=== PATIENT | female | born 1930 | race Caucasian/White ===

== ENCOUNTER → 2020-08-02 | Outpatient (CLI) | payer MEDICARE, BC ==
--- NOTE | 2020-08-02 17:02 | RADIOLOGY REPORT (SQ) ---
EXAM DESCRIPTION: PHYSIO ARTERIAL LTD IMAGES COMPLETED DATE/TIME: 08/02/2020 4:01 pm REASON FOR STUDY: RLE EDMA/PAIN R60.0 LOCALIZED EDEMA COMPARISON: None. TECHNIQUE: Brachial blood pressure obtained. Pressures attempted of the peripheral vessels at the le luly of the ankle. LIMITATIONS: The ankle vessels are noncompressible and could not obtain adequate pressure readings f or the study. FINDINGS: Nondiagnostic study. IMPRESSION: NONDIAGNOSTIC STUDY. THE ANKLE VESSELS ARE NONCOMPRESSIBLE AND COULD NOT OBTAIN ADEQUAT E PRESSURE READINGS. COMMENT: [facility] NORMAL: Greater than 1.0 MINIMAL DISEASE: 0.9 to 1.0 CLAUDICATION: 0.5 to 0.9 SEVERE ARTERIAL DISEASE: Less than 0.5 [facility] NORMAL: Greater than 1.0 (1.2 If Heavy Calcifications) NORMAL TO MILD ISCHEMIA: 0.8 to 1.0 MODERATE ISCHEMIA: 0.4 to 0.8 SEVERE ISCHEMIA: Less than 0.4 TECHNICAL DOCUMENTATION: JOB ID: [id number] 2010 [employer]- All Rights Reserved Reading location - IP/workstation name: [email or web address]
== END ==
LOC: SP 13:48
PROVIDERS: ATTEND Physician Assistant
DX: R60.0 Localized edema (principal)
CPT/HCPCS: 93922